=== PATIENT | female | born 1940 | race Caucasian/White ===

== ENCOUNTER 2020-08-01 13:15 | Outpatient (REF) | payer MEDICARE, SELFPAY ==
--- NOTE | ~2020-08-01 | US_ITS ---
EXAMINATION: US VENOUS ULTRASOUND WITH DOPPLER LOWER EXTREMITY, LEFT CLINICAL INFORMATION: Left calf edema COMPARISON: None TECHNIQUE: Ultrasound of the deep veins is performed from the hip to the calf with compression sonography and color and pulse Doppler assessment. Spectral analysis with color-flow imaging is performed. FINDINGS: There is normal venous compression and respiratory variation and augmented flow. The visualized common femoral vein, superficial femoral vein, profunda femoral vein, popliteal vein, and the trifurcation region shows no evidence of deep venous thrombosis. There is no significant popliteal fossa cyst. No popliteal artery aneurysm If the patient's symptoms persist, followup ultrasound in 5 days 7 days might be of value to exclude proximal propagation from a non-visualized calf vein. US/US venous duplex LE LT IMPRESSION: No acute DVT demonstrated in the left lower extremity.
== END 2020-08-01 13:16 | disposition home or self-care (01) ==
LOC: HO.HMGCX 13:15
PROVIDERS: Visit Provider Nurse Practitioner Family
DX: R60.0 Localized edema (principal)
CPT/HCPCS: 93971

== ENCOUNTER 2021-04-23 20:24 | Emergency (ER) | payer MEDICARE, SELFPAY ==
[2021-04-23 20:54] VITALS: BP 141/55; PULSE 77; RESP 18; TEMP 36.8; O2SAT 95; BMI 41.9
[2021-04-23 21:04] LABS: Appearance Urine CLEAR; Color Urine YELLOW; Glucose Urine UA NEG (NEG); Leukocyte Esterase Urine 1+ (NEG); Nitrite Urine NEG (NEG); UACC Culture Trigger YES; Urine Blood 2+ (NEG); Urine Ketones NEG (NEG); Urine Protein NEG (NEG-TRACE)
[2021-04-23 21:12] LABS: Bacteria Urine 1+ /LPF; Squamous Epithelial Cell Urine 2+ /LPF
--- NOTE | 2021-04-23 23:05 | ED_ITS ---
HPI - Female Genitourinary General Chief complaint: Urogenital-Female Stated complaint: ?UTI Time Seen by Provider: 04/23/21 22:48 Source: patient Mode of arrival: ambulatory History of Present Illness HPI Narrative: 80-year-old female who presents with worsening urinary symptoms that include frequency, small amounts when she does go, some burning, increased back pain but denies any nausea, vomiting, fevers, chills but states that overall she has not been feeling well. Related Data Home Medications Medication Instructions Recorded Confirmed alprazolam 1 mg tablet 1 mg PO TID PRN 08/01/20 cholecalciferol (vitamin D3) 50 50 mcg PO DAILY 08/01/20 mcg (2,000 unit) capsule cyclosporine 0.05 % eye drops in a 1 drp OPHTHALMIC (EYE) Q12H 08/01/20 dropperette (Restasis) diclofenac sodium 1 % topical gel TOPICAL 08/01/20 diltiazem HCl 240 mg 240 mg PO DAILY 08/01/20 capsule,extended release 24 hr furosemide 40 mg tablet mg PO PRN 08/01/20 lidocaine 5 % topical patch 0 patch TOPICAL DIRECTED 08/01/20 losartan 50 mg tablet 50 mg PO BID 08/01/20 metoprolol tartrate 25 mg tablet 50 mg PO BID 08/01/20 omeprazole 20 mg capsule,delayed 20 mg PO BID 08/01/20 release oxycodone 10 mg tablet 10 mg PO Q6H PRN 08/01/20 potassium chloride 20 mEq 20 meq PO BID 08/01/20 tablet,extended release rivaroxaban 20 mg tablet 20 mg PO BEDTIME 08/01/20 rivaroxaban 20 mg tablet (Xarelto) 20 mg PO DAILY 08/01/20 torsemide 20 mg tablet mg PO 08/01/20 Previous Rx's Medication Instructions Recorded cefixime 400 mg capsule 400 mg PO DAILY 7 Days #7 cap 04/23/21 Allergies Allergy/AdvReac Type Severity Reaction Status Date / Time No Known Allergies Allergy Verified 04/23/21 20:54 Review of Systems Review of Systems: Pertinent positives and negatives as stated in HPI 10 point review of systems is otherwise negative. PMFSH Past Medical History Source: nursing notes reviewed Medical History Atrial fibrillation UTI (urinary tract infection) Physical Exam Vital Signs: Vital Signs: Last Vital Signs Temp 98.3 F 04/23/21 20:54 Pulse 77 04/23/21 20:54 Resp 18 04/23/21 20:54 BP 141/55 H 04/23/21 20:54 Pulse Ox 95 04/23/21 20:54 BMI result Body Mass Index 41.9 VITAL SIGNS: Reviewed. GENERAL: Well developed, well nourished, in no acute distress. HEAD: Normocephalic/atraumatic EYES: PERRLA, EOMI OROPHARYNX: no oral lesions noted, posterior pharynx clear LUNGS: Normal breath sounds. No adventitious sounds or accessory muscle use. SpO2<95> CARDIOVASCULAR: Regular rate and rhythm without noted murmurs, no JVD or lower extremity edema. ABDOMEN: Soft, non-tender, non-distended with bowel sounds, no CVA tenderness NEUROLOGIC: Alert and oriented x 4. Strength and sensation to light touch were grossly intact x 4. Course Course Course Narrative: 80-year-old female with history and clinical presentation consistent with UTI and on review of all investigations concerns for possible ascending infection, patient received initial cephalexin here in the emergency room and then was discharged with pyelonephritis coverage. [facility] - Female Genitourinary Lab Data Labs: Lab Results 04/23/21 Range/Units 20:59 Urine Color YELLOW Urine Appearance CLEAR Urine pH 6.0 (5.0-8.0) Ur Specific [place] 1.010 (1.005-1.025) Urine Protein NEG (NEG-TRACE) MG/DL Urine Glucose (UA) NEG (NEG) MG/DL Urine Ketones NEG (NEG) MG/DL Urine Blood 2+ H (NEG) Urine Nitrite NEG (NEG) Ur Leukocyte Esterase 1+ H (NEG) Urine RBC 5-9 H (0) /HPF Urine WBC 15-29 H (0-4) /HPF Ur Squamous Epith Cells 2+ /LPF Urine Bacteria 1+ /LPF Discharge Plan Discharge Clinical Impression: Pyelonephritis Patient Disposition: Home, Self-Care Instructions: Kidney Infection (ED) Additional Instructions: Complete the entire course of antibiotics as prescribed. Recommend [id number] Tylenol/ibuprofen as needed for pain control. Increase fluid hydration with water. Return to the ER for worsening symptoms. Prescriptions: New cefixime 400 mg capsule 400 mg PO DAILY 7 Days Qty: 7 0RF No Action omeprazole 20 mg capsule,delayed release(DR/EC) 20 mg PO BID 0RF diclofenac sodium 1 % gel topical 0RF losartan 50 mg tablet 50 mg PO BID 0RF torsemide 20 mg tablet PO 0RF alprazolam 1 mg tablet 1 mg PO TID PRN0RF oxycodone 10 mg tablet 10 mg PO Q6H PRN (Reason: pain) 0RF potassium chloride 20 mEq tablet extended release 20 meq PO BID 0RF Xarelto 20 mg tablet 20 mg PO BEDTIME 0RF metoprolol tartrate 25 mg tablet 50 mg PO BID 0RF furosemide 40 mg tablet PO PRN0RF diltiazem HCl 240 mg capsule,extended release 24hr 240 mg PO DAILY 0RF lidocaine 5 % adhesive patch,medicated 0 patch topical DIRECTED 0RF Restasis 0.05 % dropperette 1 drp ophthalmic (eye) Q12H 0RF cholecalciferol (vitamin D3) 50 mcg (2,000 unit) capsule 50 mcg PO DAILY 0RF Xarelto 20 mg tablet 20 mg PO DAILY 0RF Rx Instructions: must administer with evening meal Referrals: Rafa Polanco PA [Primary Care Provider] - 2 days
[2021-04-23] MEDS: cephALEXin 500 MG CAPSULE PO (23:12)
== END 2021-04-23 23:23 | disposition home or self-care (01) ==
LOC: HO.ED 23:12
PROVIDERS: Emergency Provider Student in an Organized Health Care Education/Training Program; PCP Physician Assistant Medical
DX: N12 Tubulo-interstitial nephritis, not specified as acute or chronic (principal); R35.0 Frequency of micturition; Z79.899 Other long term (current) drug therapy
CPT/HCPCS: 81001; 87086; 99282

== ENCOUNTER 2023-01-15 10:09 | Outpatient (AMB) | payer MEDICARE, SELFPAY ==
--- NOTE | 2023-01-15 10:14 | AM.OFFWIN_ITS ---
Intake Vital Signs 01/15/23 10:15 Height 5 ft 5 in BP 162/84 H Blood Pressure Location Rt brachial Position Sitting Pulse 102 H Pulse Source Pulse Oximeter Temp 97.5 F Temp Source Temporal Artery Scan Pulse Oximetry (%) 92 Oxygen Delivery Method Room Air Intake Visit Reasons: EST/short of breath/wheezing(lobby) Intake Note: pt is here for c.o sob, wheezing Patient Tobacco Use Status: Never used Tobacco Allergies zolpidem [From Ambien] Adverse Reaction (Verified 01/16/23 06:24) Hallucinations Medication List - Last Reconciled 01/16/23 by Andrae Rocha MD albuterol sulfate 90 mcg/actuation (Ventolin HFA) 1 inh inhalation QID PRN alprazolam 1 mg PO TID PRN cephalexin 500 mg PO BID cholecalciferol (vitamin D3) 50 mcg PO DAILY codeine-guaifenesin 10-100 mg/5 mL 5 mL PO Q6H PRN cyclosporine 0.05% (Restasis) 1 drp ophthalmic (eye) Q12H diclofenac sodium 1% topical diltiazem HCl 240 mg PO DAILY furosemide mg PO PRN lidocaine 5% 0 patches topical DIRECTED losartan 50 mg PO BID metoprolol tartrate 50 mg PO BID omeprazole 20 mg PO BID oxycodone 10 mg PO Q6H PRN potassium chloride ER 20 mEq PO BID prednisone 60 mg (3 x 20 mg) PO DAILY rivaroxaban (Xarelto) 20 mg PO DAILY rivaroxaban 20 mg PO BEDTIME torsemide mg PO HPI EST/short of breath/wheezing(lobby) HPI Details 82-year-old female presents to the [facility] for a sick visit. She is accompanied by her . Patient is reporting marked shortness of breath and nonproductive cough for the past 4 days. She is unable to lie down flat. She is wheezing and has a raspy cough. Low-grade fever. She is tested negative for COVID at home. [facility] Medical History Atrial fibrillation UTI (urinary tract infection) Social History Patient Tobacco Use Status: Never used Tobacco Physical Exam Vital Signs: Last Vital Signs Temp 97.5 F 01/15/23 10:15 Pulse 102 H 11/28/23 10:15 BP 162/84 H 01/15/23 10:15 Pulse Ox 92 01/15/23 10:15 Oxygen Delivery Method Room Air 01/15/23 10:15 Const Other: Patient appears tired and is able to speak full sentences. Baseline pulse ox at room air was 85%. 2 liters/minute oxygen started. General: cooperative and alert Orientation/consciousness: patient oriented x3 Limitations: no limitations HEENT Head: Yes normal to inspection Eyes General: appearance normal, both eyes and all related structures Neck Neck: Yes normal visual inspection Chest Chest palpation & inspection: normal palpation of entire chest wall Resp Other: Scattered wheeze bilaterally. Cardio Jugular venous distension: no JVD Rate: tachycardic Heart sounds: S1 normal heart sound present and S2 normal heart sound present Neuro General: patient oriented x3 Office Procedures Nebulizer Treatment Nebulizer Treatment 94498-[id number]/MDI RX initial, or Nebulizer Subsequent Treatment Nebulizer Treatment Nebulizer Treatment 23043-Sowvgtbvk/MDI RX initial, or Nebulizer Subsequent Treatment Office Meds albuterol sulfate 2.5 mg/3 mL (0.083 %) solution for nebulization Performing Provider: Andrae Rocha MD [place] [facility] Administered by: Ericka Johnson RN on 01/15/23 10:25 Dose Route Admin Location Dispensed Lot Number Expiration Date NDC [employer] 2.5 mg inhalation 3 mL 4 04/18/24 55419-362-19 [employer] albuterol sulfate 2.5 mg/3 mL (0.083 %) solution for nebulization Performing Provider: Andrae Rocha MD Performing Location: [facility] Administered by: Ericka Johnson RN on 01/15/23 10:41 Dose Route Admin Location Dispensed Lot Number Expiration Date [employer]DC [employer] 2.5 mg inhalation 3 mL 4 04/18/24 67930-385-14 [employer] Comments: Second treatment Assessment & Plan Assessment & Plan (1) COPD exacerbation: Code(s): J44.1 - Chronic obstructive pulmonary disease with (acute) exacerbation Plan x ray images personally revd by me. No infiltrate seen. Abx, prednisone and cough medication called in. Patient was feeling better. Explained that this could get worse and needs an evaluation in the ER. Pt reluctant to proceed to the ER. Advised her to follow up here if needed. Orders: Orders AMB Nebulizer Treatment 01/15/23 R06.00 - Dyspnea, unspecified SARS-CoV2/FLU/RSV 01/15/23 R09.89 - Other specified symptoms and signs involving the circulatory and respiratory systems XR chest 2V 01/15/23 R05.9 - Cough, unspecified AMB Nebulizer Treatment 01/15/23 R06.00 - Dyspnea, unspecified Medications: New cephalexin 500 mg PO BID 14 caps 0RF albuterol sulfate 90 mcg/actuation (Ventolin HFA) 1 inh inhalation QID PRN 8.5 grams 1RF shortness of breath or wheezing prednisone 60 mg (3 x 20 mg) PO DAILY 9 tabs 0RF codeine-guaifenesin 10-100 mg/5 mL 5 mL PO Q6H PRN 120 mL 0RF allergy symptoms Discontinued cefixime Discontinued Reason: Doctor's Order 400 mg PO DAILY 7 caps 0RF 7 days Coding Level of Care Code Est Pt Level 4 (76100) Diagnoses COPD exacerbation J44.1 CPT Codes Nebulizer Treatment - Nebulizer Treatment, initial or subsequent: 91008- Nebulizer/MDI RX initial, or Nebulizer Subsequent Treatment ([id number]) Nebulizer Treatment - Nebulizer Treatment, initial or subsequent: 53853- Nebulizer/MDI RX initial, or Nebulizer Subsequent Treatment ([id number])
[2023-01-15 10:15] VITALS: BP 162/84; PULSE 102; TEMP 36.4; O2SAT 92
== END 2023-01-15 12:47 | disposition home or self-care (01) ==
PROVIDERS: PCP Physician Assistant Medical; Visit Provider Internal Medicine
DX: J44.1 Chronic obstructive pulmonary disease with (acute) exacerbation (principal)
CPT/HCPCS: 94640; 99214; J7613

== ENCOUNTER 2023-01-15 10:56 | Outpatient (REF) | payer MEDICARE, SELFPAY ==
--- NOTE | ~2023-01-15 | XR_ITS ---
EXAMINATION: XR CHEST CLINICAL INFORMATION: Cough. COMPARISON: None available. TECHNIQUE: 2 views of the chest were obtained. FINDINGS: Minimal patchy opacities along the inferior/posterior aspect of the right hilum which could represent atelectasis versus very early infiltrates. No pleural effusion or pneumothorax. Unremarkable cardiomediastinal silhouette. XR/XR chest 2V IMPRESSION: Minimal patchy opacities along the inferior/posterior aspect of the right hilum which could represent atelectasis versus very early infiltrates.
[2023-01-15 15:28] LABS: Influenza A PCR NEGATIVE (Negative); Influenza B PCR NEGATIVE (Negative); Resp Syncy Virus RNA Qual PCR POSITIVE (Negative); SARS COV2 PCR INHOUSE NEGATIVE (Negative)
== END 2023-01-15 10:57 | disposition home or self-care (01) ==
LOC: HO.HMGCX 10:56
PROVIDERS: PCP Physician Assistant Medical; Visit Provider Internal Medicine
DX: Z13.89 Encounter for screening for other disorder (principal)
CPT/HCPCS: 0241U; 71046

== ENCOUNTER 2023-01-15 11:41 | Outpatient (REF) | payer MEDICARE, SELFPAY | END 2023-01-15 11:42 | disposition home or self-care (01) | LOC: HO.LNP 11:41 | PROVIDERS: Visit Provider Internal Medicine | DX: Z13.89 Encounter for screening for other disorder (principal) ==

== ENCOUNTER 2023-01-17 11:58 | Inpatient (IN) | payer MEDICARE, SELFPAY ==
[2023-01-17] VITALS (11 sets, daily range): BP systolic 140–175; BP diastolic 67–115; PULSE 71–116; RESP 16–20; TEMP 36.1–36.9; O2SAT 93–98; BMI 41.3; BMI 43.1
--- NOTE | ~2023-01-17 | XR_ITS ---
EXAMINATION: XR CHEST 2:12 PM CLINICAL INFORMATION: Dyspnea COMPARISON: 01/15/2023 TECHNIQUE: Frontal view of the chest was obtained. FINDINGS: No significant abnormality is noted involving the heart, lungs, mediastinum, bony thorax or soft tissues. XR/XR chest 1V IMPRESSION: Grossly clear AP portable chest x-ray.
--- NOTE | 2023-01-17 12:18 | ECG_ITS ---
Test Reason : SOB Blood Pressure : / mmHG Vent. Rate : 075 BPM Atrial Rate : 000 BPM P-R Int : 000 ms QRS Dur : 074 ms QT Int : 380 ms P-R-T Axes : 000 007 002 degrees QTc Int : 424 ms Poor data quality Possible Atrial fibrillation Nonspecific ST and T wave abnormality Abnormal ECG No previous ECGs available Repeat EKG Referred By: Generic ED Physician Electronically Signed By:MARIANNA PEPPER MD
[2023-01-17 12:39] LABS: MANUAL DIFF FLAG NO
--- NOTE | 2023-01-17 12:56 | ED.SOB ---
HPI - SOB/Dyspnea General Chief Complaint: Upper Respiratory Symptoms Stated Complaint: SOB,COUGH,RECENT URI,MEDS NOT WORKING PER EMS Time Seen by Provider: 01/17/23 12:53 Source: patient and old records reviewed Mode of arrival: EMS Limitations: no limitations History of Present Illness HPI Narrative: 82 yo female with hx of COPD, afib on xarelto, UTI, leg edema who has not been well since last Saturday. She has had URI symptoms that have progressed. She denies travel or sick contacts. She went to walk in clinic on 01/16 and was started on prednisone and cephalexin as well as cough medications that are not helping. When at walk in clinic she was urged to go to the ER but she refused. She notes she is having a hard time breathing, laying flat and she is labored. EMS gave duoneb ECONOMICS ANALYST of note RSV positive on 01/15 MD elicited complaint: shortness of breath and cough Pertinent past history: COPD Onset (ago): week(s) (1) Context: recent illness Timing: progressively worsening Severity: moderate Exacerbating factors: lying flat, exertion and coughing Relieving factors: oxygen, rest and bronchodilators Associated symptoms: cough, wheezing and chest congestion Treatment prior to arrival: oxygen and bronchodilator Related Data Home Medications Medication Instructions Recorded Confirmed alprazolam 1 mg tablet 2 mg PO BEDTIME 08/01/20 01/17/23 cholecalciferol (vitamin D3) 50 50 mcg PO DAILY 08/01/20 01/17/23 mcg (2,000 unit) capsule cyclosporine 0.05 % eye drops in a 1 drp ophthalmic (eye) Q12H 08/01/20 01/17/23 dropperette (Restasis) diclofenac sodium 1 % topical gel 1 ea topical DAILY 08/01/20 01/17/23 diltiazem HCl 240 mg 240 mg PO DAILY 08/01/20 01/17/23 capsule,extended release 24 hr lidocaine 5 % topical patch 0 patch topical DIRECTED 08/01/20 01/17/23 losartan 50 mg tablet 100 mg PO DAILY 08/01/20 01/17/23 metoprolol tartrate 25 mg tablet 50 mg PO BID 08/01/20 01/17/23 omeprazole 20 mg capsule,delayed 20 mg PO BID 08/01/20 01/17/23 release oxycodone 10 mg tablet 10 mg PO Q6H PRN pain 08/01/20 01/17/23 potassium chloride 20 mEq 20 meq PO BID 08/01/20 01/17/23 tablet,extended release rivaroxaban 20 mg tablet (Xarelto) 20 mg PO DAILY@1700 08/01/20 01/17/23 torsemide 20 mg tablet 1 mg PO DAILY 08/01/20 01/17/23 clobetasol 0.05 % topical cream 1 appl topical BID 01/17/23 01/17/23 estradiol 0.01% (0.1 mg/gram) 1 appl vaginal MOTH 01/17/23 01/17/23 vaginal cream nystatin 100,000 unit/gram topical 1 appl topical BID 01/17/23 01/17/23 powder Previous Rx's Medication Instructions Recorded albuterol sulfate 90 mcg/actuation 1 inh inhalation QID PRN shortness 01/15/23 aerosol inhaler (Ventolin HFA) of breath or wheezing #8.5 grams Allergies Allergy/AdvReac Type Severity Reaction Status Date / Time zolpidem [From Ambien] AdvReac Hallucinati Verified 01/16/23 06:24 ons Review of Systems Review of Systems: Constitutional : No Fever, No Chills ENT/Mouth : No Hoarseness, No sore throat, No Rhinorrhea Eyes: No Redness, No Discharge, No Vision Changes Cardiovascular : No Chest Pain, positive SOB, positive Dyspnea on Exertion, No Edema Respiratory : positive Cough, No Sputum, positive Wheezing, Gastrointestinal : No Nausea, No Vomiting, No Diarrhea, No abdominal Pain Genitourinary : No Dysuria, No Hematuria Musculoskeletal : No joint pain, No Myalgias Skin : No rash Neuro : No Weakness, No Numbness, No Headache Psych : No anxiety, depression Heme/Lymph: No Bruising, No Bleeding Endocrine : No Polyuria, No Polydipsia All other systems reviewed and are negative [facility] Past Medical History Attestation statement: The following information was validated with the patient. Medical History Atrial fibrillation UTI (urinary tract infection) Social History Social History Household Members: Spouse Household Members Other:: Spouse Lucio Housing: House Do you presently have visiting nurse or other home services: No Patient Tobacco Use Status: Never used Tobacco Smoked in Last 30 Days: No Second Hand Smoke Exposure: No Use of substances other than those prescribed or required for medical reasons: No Currently Displaying Signs/Symptoms of Drug Intoxication Withdrawal: No Any prior treatment program specific to substance use: No Have you been hit, kicked, punched, or otherwise hurt by someone within the past year? If so, by whom?: No Do you feel safe in your current relationship?: Yes Is there a partner from a previous relationship who is making you feel unsafe now?: No Are you made to feel afraid or neglected: No Advance Directives: No Advance Directives Information Provided: No Do you have thoughts of harming others: None Do you have a plan to hurt others: No Plan Recently lost weight without trying: No Eating poorly because of decreased appetite: No Nutrition Risks: No Nutritional Risk Patient : No : No Poor oral hygiene: No Physical Exam Vital Signs: Vital Signs: Last Vital Signs Temp 96.9 F 01/17/23 20:00 Pulse 106 H 01/17/23 20:11 Resp 16 01/17/23 20:11 BP 167/77 H 01/17/23 20:00 Pulse Ox 96 01/17/23 20:00 O2 Del Method Nasal Cannula 01/17/23 20:00 O2 Flow Rate 2 01/17/23 20:00 BMI result Body Mass Index 41.3 Appearance: Alert. Oriented X3. No acute distress. Eyes: Pupils equal, round and reactive to light. ENT: Pharynx normal. Neck: Normal inspection. Neck supple. CVS: Normal heart rate and rhythm. Pulses normal. Respiratory: Mild respiratory distress - tachypnea and retractions. Breath sounds very coarse and wheezy with tachypnea Abdomen: Soft and nontender. Skin: Skin warm and dry. Normal skin color. Normal skin turgor. Extremities: No lower extremity edema. No calf ttp Neuro: Oriented X 3. No motor deficit. No sensory deficit. Course Course Course Narrative: lactic acidosis trend due to neb treatments and not worsening sepsis she does not need 30cc/kg bolus - elevated lactic acidosis is due to albuterol and not infection or severe sepsis Medications Administered Generic Name Dose Route Start Last Admin Trade Name Freq PRN Reason Stop Dose Admin Albuterol/Ipratropium 3 ml 01/17/23 20:00 01/17/23 20:09 Albuterol/Iprat 2.5/0.5mg 3 Ml Ampul.Neb INHALE 3 ml RQ4H MICHAEL Administration Rivaroxaban 20 mg 01/17/23 17:00 01/17/23 18:09 Rivaroxaban 20 Mg Tablet PO 20 mg DAILY@1700 MICHAEL Administration Discontinued Medications Generic Name Dose Route Start Last Admin Trade Name Helio PRN Reason Stop Dose Admin Albuterol/Ipratropium 3 ml 01/17/23 13:28 01/17/23 13:32 Albuterol/Iprat 2.5/0.5mg 3 Ml Ampul.Neb INHALE 01/17/23 13:29 3 ml ONCE ONE Administration Albuterol/Ipratropium 3 ml 01/17/23 17:00 01/17/23 17:08 Albuterol/Iprat 2.5/0.5mg 3 Ml Ampul.Neb INHALE Not Given Q4H [facility] Furosemide 20 mg 01/17/23 14:20 01/17/23 15:45 Furosemide 20 Mg/2 Ml Vial IVPUSH 01/17/23 14:21 20 mg ONCE ONE Administration Protocol Ceftriaxone Sodium 1 gm/ 50 mls @ 100 mls/hr 01/17/23 13:06 01/17/23 17:30 Sodium Chloride IV 01/17/23 13:35 Infused ONCE ONE Infusion Azithromycin 500 mg/ Sodium 250 mls @ 125 mls/hr 01/17/23 13:06 01/17/23 17:50 Chloride IV 01/17/23 15:05 Infused ONCE ONE Infusion Sodium Chloride 500 mls @ 500 mls/hr 01/17/23 14:30 01/17/23 18:29 Ns IV 01/17/23 15:29 Infused .Q1H MICHAEL Infusion Methylprednisolone Sodium Succinate 60 mg 01/17/23 13:06 01/17/23 14:20 Methylprednisolone Sod Succ 125 Mg/2 Ml Vial IVPUSH 01/17/23 13:07 60 mg ONCE ONE Administration Non-Formulary Medication 1 drop 01/17/23 17:00 01/17/23 18:10 Cyclosporine [Restasis] EYE-BOTH Not Given Q12H [facility] Non-Formulary Medication 1 appl 01/17/23 17:00 01/17/23 18:11 Estradiol VAGINAL Not Given MOTH [facility] Oxycodone HCl 10 mg 01/17/23 14:17 01/17/23 15:01 Oxycodone Hcl Immed Release 5 Mg Tablet PO 01/17/23 14:18 10 mg ONCE ONE Administration Medical Decision Making Medical Decision Making [facility] Narrative: 82 yo female with hx of COPD, afib on xarelto, UTI, leg edema here with c/o worsening URI symptoms now congested cough and wheezing has been on INH, prednisone and cephalexin since 01/15 without relief. At this time labs, neb, IV steroids, CXR for pneumonia, empiric coverage for possible bronchitis vs pneumonia. Likely admit vs failed outpatient therapy Differential Diagnosis Differential Diagnoses: The differential diagnosis associated with the presentation includes viral syndrome, COPD, pneumonia Admission/Observation Consideration of admission/observation: Escalation of care including admission/observation considered admit for work of breathing low O2 sats Consult Healthcare Provider Management of the patient was discussed with: Hospitalist (agrees to admit) Lab Data [facility] Lab Attestation statement: I reviewed the patient's lab results. 01/17/23 12:23 01/17/23 12:23 Labs: Lab Results 01/17/23 01/17/23 01/17/23 Range/Units 12:23 13:19 13:54 WBC 9.8 (4.8-10.8) X10*3/uL RBC 4.62 (4.20-5.50) X10*6/uL Hgb 13.3 (12.0-16.0) g/dl Hct 40.4 (37.0-47.0) % MCV 87.4 (80.0-98.0) fL MCH 28.8 (27.0-33.0) pg MCHC 32.9 (31.0-35.0) g/dl RDW 14.6 (11.0-16.0) % Plt Count 258 (160-400) X10*3/uL MPV 10.6 (9.4-12.3) fL Immature Gran % (Auto) 0.5 H (0.0-0.4) % Neut % (Auto) 80.4 H (45-73) % Lymph % (Auto) 15.8 L (20-40) % [place] % (Auto) 3.2 (2-11) % Eos % (Auto) 0.0 (0-4) % Baso % (Auto) 0.1 (0-2) % Lymph # (Auto) 1.5 (1.2-4.9) X10*3/uL [place] # (Auto) 0.3 (0.1-1.2) X10*3/uL Eos # (Auto) 0.0 (0.0-0.4) X10*3/uL Baso # (Auto) 0.0 (0.0-0.2) X10*3/uL Abs Immat Gran (auto) 0.05 H (0.00-0.03) X10*3/uL Absolute Neuts (auto) 7.9 (2.0-8.3) x10*3/uL Absolute Nucleated RBC 0.000 (0.0-0.012) X10*3/uL Nucleated RBC % (auto) 0.0 (0.0-0.2) /100WBC Sodium 137 (135-145) mmol/L Potassium 4.0 (3.3-5.1) mmol/L Chloride 98 (96-108) mmol/L Carbon Dioxide 27 (22-29) mmol/L Anion Gap 16 (12-20) BUN 32 H (9-16) mg/dL Creatinine 1.07 (0.5-1.4) mg/dL Estim Creat Clear Calc 48.9 Estimated GFR 49 Random Glucose 233 H (60-115) mg/dL Lactic Acid 2.9 H* (0.5-2.0) mmol/L Calcium 9.9 (8.4-10.2) mg/dL Total Bilirubin 0.4 (0.0-1.0) mg/dL AST 27 (5-31) U/L ALT 27 (0-31) U/L Alkaline Phosphatase 70 (39-117) U/L Troponin I High Sens 9.6 (<3.5-17.0) ng/L B-Natriuretic Peptide 157 H (<100) pg/mL Total Protein 8.3 H (6.5-8.0) g/dL Albumin 4.5 (3.5-5.0) g/dL Influenza Type A (PCR) NEGATIVE (Negative) Influenza Type B (PCR) NEGATIVE (Negative) RSV RNA Qual (PCR) POSITIVE A (Negative) SARS-CoV-2 RNA (RT-PCR) NEGATIVE (Negative) Independent Interpretation I performed an independent interpretation of an: EKG and Plain X-Ray (no pneumonia) Interpretation: Rate: 75 Rhythm: afib [place]: left Normal QRS complex. ST T wave : no STEFFI, nonspecific qTC: normal prior studies: no acute ischemia The study has been interpreted contemporaneously by me. . Radiology Impression Discussion of test interpretation with radiology: I have reviewed the radiologist's reading. Independent Historian Clinical information obtained from an independent historian. History obtained from or confirmed by: EMS Critical Care Time Critical Care Time Critical Care Time: Yes Total Critical Care Time: 35 Attestation: review of records, IV lasix, repeat lactic acidosis, repeat admission, nebs I attest to this time spent taking care of the patient Discharge Plan Discharge Clinical Impression: RSV bronchitis, Acidosis, lactic Elevated WBC count Qualifiers: Leukocytosis type: unspecified Qualified Code(s): D72.829 - Elevated white blood cell count, unspecified Patient Disposition: Admitted As Inpatient Interventions: Admission Worksheet (ED) Last Done: 01/17/23 20:16 Discharge Date/Time: 01/17/23 20:33
[2023-01-17 12:57] LABS: Basophils Percent Auto 0.1 % (0-2); Hematocrit 40.4 % (37.0-47.0); Hemoglobin 13.3 g/dl (12.0-16.0); Imm Gran Abs Auto 0.05 X10*3/uL (0.00-0.03); Imm Gran Pct Auto 0.5 % (0.0-0.4); Lymphocytes Absolute Auto 1.5 X10*3/uL (1.2-4.9); Lymphocytes Percent Auto 15.8 % (20-40); Mean Corpuscular HGB Conc 32.9 g/dl (31.0-35.0); Mean Corpuscular Hemoglobin 28.8 pg (27.0-33.0); Mean Corpuscular Volume 87.4 fL (80.0-98.0); Mean Platelet Volume 10.6 fL (9.4-12.3); Monocytes Absolute Auto 0.3 X10*3/uL (0.1-1.2); Monocytes Percent Auto 3.2 % (2-11); Neutrophils Absolute Auto 7.9 x10*3/uL (2.0-8.3); Neutrophils Percent Auto 80.4 % (45-73); Platelet Count 258 X10*3/uL (160-400); Red Blood Count 4.62 X10*6/uL (4.20-5.50); Red Cell Distribution Width 14.6 % (11.0-16.0); White Blood Count 9.8 X10*3/uL (4.8-10.8)
[2023-01-17 13:10] LABS: Alanine Aminotransferase 27 U/L (0-31); Albumin Level 4.5 g/dL (3.5-5.0); Alkaline Phosphatase 70 U/L (39-117); Anion Gap 16 (12-20); Aspartate Amino Transferase 27 U/L (5-31); Bilirubin Total 0.4 mg/dL (0.0-1.0); Blood Urea Nitrogen 32 mg/dL (9-16); Calcium 9.9 mg/dL (8.4-10.2); Carbon Dioxide 27 mmol/L (22-29); Chloride 98 mmol/L (96-108); Creatinine Clr Calc Pharmacy 48.9; Estimated Glomerular Filt Rate 49; Glucose Random 233 mg/dL (60-115); Sodium 137 mmol/L (135-145); Total Protein 8.3 g/dL (6.5-8.0)
[2023-01-17] MEDS: Albuterol/Iprat 2.5/0.5MG 3 ML AMPUL.NEB INHALE ×3 (13:32→23:18)
[2023-01-17 13:44] LABS: B Type Natriuretic Peptide 157 pg/mL (<100)
[2023-01-17 13:45] LABS: Troponin-I High Sensitivity 9.6 ng/L (<3.5-17.0)
[2023-01-17 14:02] LABS: Influenza A PCR NEGATIVE (Negative); Influenza B PCR NEGATIVE (Negative); Resp Syncy Virus RNA Qual PCR POSITIVE (Negative); SARS COV2 PCR INHOUSE NEGATIVE (Negative)
[2023-01-17 14:20] LABS: Lactic Acid 2.9 mmol/L (0.5-2.0)
[2023-01-17] MEDS: methylPREDNISolone Sod Succ 125 MG/2 ML VIAL 60 MG IVPUSH (14:20)
[2023-01-17] MEDS: cefTRIAXone sodium 1 GM in 0.9 % Sodium Chloride 50 ML IV (14:58)
[2023-01-17] MEDS: oxyCODONE HCl Immed Release 5 MG TABLET 10 MG PO ×2 (15:01→21:59)
[2023-01-17] MEDS: Furosemide 20 MG/2 ML VIAL IVPUSH (15:45)
[2023-01-17] MEDS: Azithromycin 500 MG in 0.9 % Sodium Chloride 250 ML 125 MG IV (15:46)
[2023-01-17] MEDS: 0.9 % Sodium Chloride 500 ML IV (15:48)
[2023-01-17 16:00] LABS: Reflex Lactate? Lactic Acid Added
--- NOTE | 2023-01-17 16:49 | PHA.MEDREC ---
Pharmacy Consult ? Medication Reconciliation Pharmacy has completed the medication reconciliation.
--- NOTE | 2023-01-17 17:24 | P.HPHOSP_ITS ---
History of Present Illness Date of Service: 01/17/23 Attending physician on admission: Griselda Steward Chief Complaint: sob and cough 82 yo female with hx of COPD, afib on xarelto, UTI, leg edema who has not been well since last Saturday. She has had URI symptoms that have progressed. She denies travel or sick contacts. She went to walk in clinic on 01/16 and was started on prednisone and cephalexin as well as cough medications that are not helping. When at walk in clinic she was urged to go to the ER but she refused. no fevers In ED patient received antibiotics, still nebs, steroids was not improving says still having shortness of breath with minimal exertion and having cough; so admission was requested for COPD exacerbation. Denies any new complaint of chest pain or abdominal pain or fever or chills or nausea or vomiting Denies any cough Denies any weakness or numbness. Lab imaging EKG reviewed: CBC: Seems fine. BMP: Seems fine except BUN is 32 creatinine is 1.07. ekg: afib Review of Systems 2 Review of Systems: As above. [facility] Medical History Atrial fibrillation UTI (urinary tract infection) Social History Household Members: Spouse Household Members Other:: Spouse Lucio Housing: House Do you presently have visiting nurse or other home services: No Comment: pt is calm and cooperative, a&Ox4. Not impulsive Patient Tobacco Use Status: Never used Tobacco Smoked in Last 30 Days: No Second Hand Smoke Exposure: No Use of substances other than those prescribed or required for medical reasons: No Currently Displaying Signs/Symptoms of Drug Intoxication Withdrawal: No Any prior treatment program specific to substance use: No Have you been hit, kicked, punched, or otherwise hurt by someone within the past year? If so, by whom?: No Do you feel safe in your current relationship?: Yes Is there a partner from a previous relationship who is making you feel unsafe now?: No Are you made to feel afraid or neglected: No Advance Directives: No Advance Directives Information Provided: No Do you have thoughts of harming others: None Do you have a plan to hurt others: No Plan Recently lost weight without trying: No Eating poorly because of decreased appetite: No Nutrition Risks: No Nutritional Risk Patient : No : No Poor oral hygiene: No Meds Allergies Allergy/AdvReac Type Severity Reaction Status Date / Time zolpidem [From Ambien] AdvReac Hallucinati Verified 01/16/23 06:24 ons Active Medications: Current Medications Albuterol Sulfate (Albuterol Sulfate 90 Mcg 8 Gm Inhaler) 1 puff INHALE QID PRN PRN Reason: shortness of breath or wheezing Albuterol/Ipratropium (Albuterol/Iprat 2.5/0.5mg 3 Ml Ampul.Neb) 3 ml INHALE Q3H PRN PRN Reason: sob Albuterol/Ipratropium (Albuterol/Iprat 2.5/0.5mg 3 Ml Ampul.Neb) 3 ml INHALE RQ4H [facility] Alprazolam (Alprazolam 0.5 Mg Tablet) 2 mg PO BEDTIME [facility] Diltiazem HCl (Diltiazem Hcl Cd 240 Mg Cap.Er.Deg) 240 mg PO DAILY [facility]; Protocol Ceftriaxone Sodium 1 gm/ (Sodium Chloride) 50 mls @ 100 mls/hr IV DAILY [facility] Lidocaine (Lidocaine 4 % Patch Adh..Patch) 1 patch TRANSDERMA DAILY [facility] Losartan Potassium (Losartan Potassium 50 Mg Tablet) 100 mg PO DAILY [facility]; Protocol Metoprolol Tartrate (Metoprolol Tartrate 50 Mg Tablet) 50 mg PO BID MICHAEL; Protocol Non-Formulary Medication (Clobetasol) 1 appl TOPICAL BID [facility] Non-Formulary Medication (Cyclosporine [Restasis]) 1 drop EYE-BOTH Q12H [facility] Non-Formulary Medication (Diclofenac Sodium) 1 each TOPICAL DAILY [facility] Non-Formulary Medication (Estradiol) 1 appl VAGINAL MOTH [facility] Nystatin (Nystatin Powder 15 Gm Bottle) 1 appl TOPICAL BID [facility]; Protocol Omeprazole (Omeprazole 20 Mg Capsule.Dr) 20 mg PO BID@0630,1630 [facility] Potassium Chloride (Potassium Chloride Er 20 Meq Tab.Er.Prt) 20 meq PO BID [facility] Rivaroxaban (Rivaroxaban 20 Mg Tablet) 20 mg PO DAILY@1700 [facility] Torsemide (Torsemide 20 Mg Tablet) 1 mg PO DAILY [facility]; Protocol Vitamin D (Cholecalciferol (Vitamin D3) 25 Mcg Tablet) 50 mcg PO DAILY [facility] Home Medications Medication Instructions Recorded Confirmed Last Taken Type alprazolam 1 mg tablet 2 mg PO BEDTIME 08/01/20 01/17/23 Unknown History cholecalciferol (vitamin D3) 50 50 mcg PO DAILY 08/01/20 01/17/23 Unknown History mcg (2,000 unit) capsule cyclosporine 0.05 % eye drops in a 1 drp ophthalmic (eye) Q12H 08/01/20 01/17/23 Unknown History dropperette (Restasis) diclofenac sodium 1 % topical gel 1 ea topical DAILY 08/01/20 01/17/23 Unknown History diltiazem HCl 240 mg 240 mg PO DAILY 08/01/20 01/17/23 Unknown History capsule,extended release 24 hr lidocaine 5 % topical patch 0 patch topical DIRECTED 08/01/20 01/17/23 Unknown History losartan 50 mg tablet 100 mg PO DAILY 08/01/20 01/17/23 Unknown History metoprolol tartrate 25 mg tablet 50 mg PO BID 08/01/20 01/17/23 Unknown History omeprazole 20 mg capsule,delayed 20 mg PO BID 08/01/20 01/17/23 Unknown History release oxycodone 10 mg tablet 10 mg PO Q6H PRN pain 08/01/20 01/17/23 Unknown History potassium chloride 20 mEq 20 meq PO BID 08/01/20 01/17/23 Unknown History tablet,extended release rivaroxaban 20 mg tablet (Xarelto) 20 mg PO DAILY@1700 08/01/20 01/17/23 Unknown History torsemide 20 mg tablet 60 mg PO BEDTIME 08/01/20 01/18/23 Unknown History clobetasol 0.05 % topical cream 1 appl topical BID 01/17/23 01/17/23 Unknown History estradiol 0.01% (0.1 mg/gram) 1 appl vaginal MOTH 01/17/23 01/17/23 Unknown History vaginal cream nystatin 100,000 unit/gram topical 1 appl topical BID 01/17/23 01/17/23 Unknown History powder torsemide 20 mg tablet 80 mg PO DAILY 01/18/23 01/18/23 Unknown History Physical Exam 2 Vital Signs and Narrative: Vital Signs: Last Vital Signs Temp 98.4 F 01/17/23 12:11 Pulse 86 01/17/23 15:49 Resp 18 01/17/23 15:49 BP 175/76 H 01/17/23 15:49 Pulse Ox 93 01/17/23 12:11 O2 Del Method Room Air 01/17/23 15:49 BMI result Body Mass Index 41.3 Appearance: Alert.? Oriented X3.?sob. Eyes: Pupils equal, round and reactive to light.? Sclera nonicteric.? ENT: Pharynx normal.? Moist mucous membranes. cvs: rrr, [id number] , no murmur res: diminshed breath sounds ,b/l wheezin abd: no rebound or guarding ,nt, bs present. ext pulses present , no cyanosis neuro: axo3 , nonfocal. Results Labs 01/17/23 12:23 01/17/23 12:23 Labs: Laboratory Results - last 24 hr 01/17/23 01/17/23 01/17/23 12: 13:19 13:54 MCV 87.4 MCH 28.8 MCHC 32.9 RDW 14.6 Plt Count 258 MPV 10.6 Immature Gran % (Auto) 0.5 H Neut % (Auto) 80.4 H Lymph % (Auto) 15.8 L [place] % (Auto) 3.2 Eos % (Auto) 0.0 Baso % (Auto) 0.1 Lymph # (Auto) 1.5 [place] # (Auto) 0.3 Eos # (Auto) 0.0 Baso # (Auto) 0.0 Abs Immat Gran (auto) 0.05 H Absolute Neuts (auto) 7.9 Absolute Nucleated RBC 0.000 Nucleated RBC % (auto) 0.0 Anion Gap 16 Estim Creat Clear Calc 48.9 Estimated GFR 49 Random Glucose 233 H Lactic Acid 2.9 H* Calcium 9.9 Total Bilirubin 0.4 AST 27 ALT 27 Alkaline Phosphatase 70 B-Natriuretic Peptide 157 H Total Protein 8.3 H Albumin 4.5 Influenza Type A (PCR) NEGATIVE Influenza Type B (PCR) NEGATIVE RSV RNA Qual (PCR) POSITIVE A SARS-CoV-2 RNA (RT-PCR) NEGATIVE Imaging Radiologist's Impressions: Impressions Chest X-Ray 01/17/23 14:25 IMPRESSION: Grossly clear AP portable chest x-ray. Assessment and Plan (1) RSV bronchitis: Status: Acute Plan 82 yo female with hx of COPD, afib on xarelto, UTI, leg edema who has not been well since last Saturday. She has had URI symptoms that have progressed. She denies travel or sick contacts. She went to walk in clinic on 01/16 and was started on prednisone and cephalexin as well as cough medications that are not helping. When at walk in clinic she was urged to go to the ER but she refused. no fevers In ED patient received antibiotics, still nebs, steroids was not improving says still having shortness of breath with minimal exertion and having cough; so admission was requested for COPD exacerbation. COPD exacerbation with RSV URI: Chest x-ray negative, blood cultures sent, will add are yes panel. Patient still having productive cough, shortness of breath with minimal exertion Nebs, steroids tried failed out patiently Elevated lactic acid due to nebs Will continue nebs, steroids, antibiotics If patient condition worsen will get ABG, consider pulmonary evaluation. afib on xarelto ekg afib Rate controlled continue diltiazem htn: Continue medications-metoprolol, diltiazem, losartan Patient will benefit 48 hour hospital treatment for underlying COPD exacerbation because did not respond to outpatient treatment also patient is still symptomatic after trial of ED treatment with nebs, steroids: We will continue IV antibiotics, steroids, nebs and continue to monitor. Above management discussed with patient in length and she understand and in agreement with the plan, time spent 70 minute. Quality Stroke Does the patient have a stroke diagnosis?: No VTE Prior VTE?: No VTE Risk Level:: Medical - moderate - high VTE Device Contraindication: N/A - Device Ordered VTE Drug Contraindication: N/A - Med Ordered
[2023-01-17] MEDS: Rivaroxaban 20 MG TABLET PO (18:09)
[2023-01-17 18:34] LABS: Glucose, Whole Blood 220 mg/dL (60-115)
[2023-01-17 18:35] LABS: Cancel Lactic Acid Canceled
--- NOTE | 2023-01-17 19:46 | MHC.EDTECH ---
Patient given dinner tray
[2023-01-17] MEDS: Potassium Chloride ER 20 MEQ TAB.ER.PRT PO (22:00)
[2023-01-17] MEDS: ALPRAZolam 0.5 MG TABLET 2 MG PO (22:00)
[2023-01-17] MEDS: Metoprolol Tartrate 50 MG TABLET PO (22:00)
[2023-01-17] MEDS: 0.9 % Sodium Chloride Flush 3 ML SYRINGE IVFLUSH (23:08)
[2023-01-17] MEDS: Nystatin Powder 15 GM BOTTLE 1 APPL TOPICAL (23:08)
[2023-01-18] VITALS (11 sets, daily range): BP systolic 114–149; BP diastolic 55–85; PULSE 77–98; RESP 18–20; TEMP 36.2–37.1; O2SAT 91–97
--- NOTE | 2023-01-18 00:41 | PC.NURSE ---
Pt admitted to [facility] from ED 20:00 hour. Seen this admission for COPD exacerbation and +RSV. Pt on contact and droplet precautions for this. Pt is A&Ox4. Arrived on 2L nc. Pt denies o2 use at home for her copd. +Intermittent dry cough, pt states she leaks when she coughs which is per her baseline; peripads provided per her request after she refused offered purewick. Attempted to wean pt to RA per MD early this morning. Pt's spo2 was measuring 92-95% on RA while at rest, however pt desatted to a sustained 85-88% on RA during ambulating to bathroom with +mild sob and wheezing. Condition improved with return to bed and duoneb, spo2 94% with even and unlabored respirations. Despite this the pt stated she feels she has a harder time breathing without the o2 . 1L nc replaced and Dr. Mcgarry notified of assessment findings. O2 titration and continuous spo2 monitor orders placed. Pt currently 94% on 1L nc while resting in bed. Breathing is even and unlabored without distress on reassess. Extended respiratory pathogen panel sent as ordered. Patient denies acute complaints. 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 Pt reports +pain management. Will continue to monitor.
[2023-01-18] MEDS: oxyCODONE HCl Immed Release 5 MG TABLET 10 MG PO ×3 (05:40→20:31)
[2023-01-18] MEDS: Omeprazole 20 MG CAPSULE.DR PO ×2 (05:40→16:30)
[2023-01-18] MEDS: Albuterol/Iprat 2.5/0.5MG 3 ML AMPUL.NEB INHALE ×4 (08:08→20:29)
[2023-01-18] MEDS: predniSONE 10 MG TABLET 50 MG PO (08:31)
[2023-01-18] MEDS: guaiFEN/Codeine SF 200/20/10ML 10 ML LIQUID PO ×3 (08:31→21:52)
[2023-01-18] MEDS: Potassium Chloride ER 20 MEQ TAB.ER.PRT PO ×2 (08:32→21:50)
[2023-01-18] MEDS: Metoprolol Tartrate 50 MG TABLET PO ×2 (08:32→21:49)
[2023-01-18] MEDS: dilTIAZem HCL CD 240 MG CAP.ER.DEG PO (08:32)
[2023-01-18] MEDS: Losartan Potassium 50 MG TABLET 100 MG PO (08:33)
[2023-01-18] MEDS: Cholecalciferol (Vitamin D3) 25 MCG TABLET 50 MCG PO (08:33)
[2023-01-18] MEDS: Lidocaine 4 % Patch ADH..PATCH 1 PATCH TRANSDERMA ×2 (08:42→09:37)
[2023-01-18] MEDS: 0.9 % Sodium Chloride Flush 3 ML SYRINGE IVFLUSH ×2 (09:35→21:55)
[2023-01-18] MEDS: cefTRIAXone sodium 1 GM in 0.9 % Sodium Chloride 50 ML IV (09:35)
[2023-01-18] MEDS: Torsemide 20 MG TABLET 80 MG PO (09:36)
[2023-01-18 11:33] LABS: Adenovirus PCR Not Detected (Not Detect.); Bordetella parapertussis PCR Not Detected (Not Detect.); Bordetella pertussis PCR Not Detected (Not Detect.); Chlamydia pneumoniae PCR Not Detected (Not Detect.); Coronavirus 229E PCR Not Detected (Not Detect.); Coronavirus HKU1 PCR Not Detected (Not Detect.); Coronavirus NL63 PCR Not Detected (Not Detect.); Coronavirus OC43 PCR Not Detected (Not Detect.); Human metapneumovirus PCR Not Detected (Not Detect.); Influenza A PCR Not Detected (Not Detect.); Influenza B PCR Not Detected (Not Detect.); Mycoplasma pneumoniae PCR Not Detected (Not Detect.); Parainfluenza 1 PCR Not Detected (Not Detect.); Parainfluenza 2 PCR Not Detected (Not Detect.); Parainfluenza 3 PCR Not Detected (Not Detect.); Parainfluenza 4 PCR Not Detected (Not Detect.); RSV PCR Detected (Not Detect.); Rhino/Enterovirus PCR Not Detected (Not Detect.)
[2023-01-18 12:06] LABS: SARS-CoV-2 PCR Not Detected (Not Detect.)
[2023-01-18] MEDS: Benzonatate 100 MG CAPSULE PO ×2 (14:20→21:50)
--- NOTE | 2023-01-18 15:58 | HO.PM.IMPN ---
Subjective Subjective Date of Service: 01/18/23 Interval History: COPD exacerbation, RSV URI Review of Systems Patient still getting dressed shortness of breath, also has aggressive cough Feels short of breath with minimal exertion Generalized weak. Physical Exam Vital Signs: Vital Signs: Last Vital Signs Temp 97.2 F 01/18/23 11:14 Pulse 98 01/18/23 15:49 Resp 20 01/18/23 15:49 BP 135/85 01/18/23 11:14 Pulse Ox 94 01/18/23 11:14 O2 Del Method Room Air 01/18/23 11:14 O2 Flow Rate 1 01/18/23 07:35 BMI result Body Mass Index 43.1 Appearance: Alert.? Oriented X3.?sob.. cvs: rrr, [id number] , no murmur res: diminshed breath sounds ,b/l wheezin abd: no rebound or guarding ,nt, bs present. ext pulses present , no cyanosis neuro: axo3 , nonfocal. Objective Data Active Medications Albuterol/Ipratropium (Albuterol/Iprat 2.5/0.5mg 3 Ml Ampul.Neb) 3 ml INHALE Q3H PRN PRN Reason: sob Albuterol/Ipratropium (Albuterol/Iprat 2.5/0.5mg 3 Ml Ampul.Neb) 3 ml INHALE RQ4H [facility] Last Admin: 01/18/23 15:49 Dose: 3 ml Documented By: KAM Alprazolam (Alprazolam 0.5 Mg Tablet) 2 mg PO BEDTIME [facility] Last Admin: 01/17/23 22:00 Dose: 2 mg Documented By: ARLIN Benzonatate (Benzonatate 100 Mg Capsule) 100 mg PO TID [facility] Last Admin: 01/18/23 14:20 Dose: 100 mg Documented By: SHREYA Diltiazem HCl (Diltiazem Hcl Cd 240 Mg Cap.Er.Deg) 240 mg PO DAILY [facility]; Protocol Last Admin: 01/18/23 08:32 Dose: 240 mg Documented By: SHREYA Guaifenesin/Codeine Phosphate (Guaifen/Codeine Sf 200/20/10ml 10 Ml Liquid) 10 ml PO Q4H PRN PRN Reason: cough Last Admin: 01/18/23 14:20 Dose: 10 ml Documented By: SHREYA Ceftriaxone Sodium 1 gm/ (Sodium Chloride) 50 mls @ 100 mls/hr IV DAILY [facility] Last Infusion: 01/18/23 10:10 Dose: Infused Documented By: SHREYA Lidocaine (Lidocaine 4 % Patch Adh..Patch) 1 patch TRANSDERMA DAILY [facility] Last Admin: 01/18/23 08:42 Dose: 1 patch Documented By: SHREYA Lidocaine (Lidocaine 4 % Patch Adh..Patch) 1 patch TRANSDERMA DAILY [facility]; Protocol Last Admin: 01/18/23 09:37 Dose: 1 patch Documented By: SHREYA Losartan Potassium (Losartan Potassium 50 Mg Tablet) 100 mg PO DAILY [facility]; Protocol Last Admin: 01/18/23 08:33 Dose: 100 mg Documented By: SHREYA Metoprolol Tartrate (Metoprolol Tartrate 50 Mg Tablet) 50 mg PO BID [facility]; Protocol Last Admin: 01/18/23 08:32 Dose: 50 mg Documented By: SHREYA Nystatin (Nystatin Powder 15 Gm Bottle) 1 appl TOPICAL BID [facility]; Protocol Last Admin: 01/18/23 08:42 Dose: Not Given Documented By: SHREYA Non-Admin Reason: Patient Refused Omeprazole (Omeprazole 20 Mg Jeovany.) 20 mg PO BID@0630,1630 [facility] Last Admin: 01/18/23 05:40 Dose: 20 mg Documented By: ARLIN Oxycodone HCl (Oxycodone Hcl Immed Release 5 Mg Tablet) 10 mg PO Q6H PRN PRN Reason: mod pain Last Admin: 01/18/23 14:20 Dose: 10 mg Documented By: SHREYA Potassium Chloride (Potassium Chloride Er 20 Meq Tab.Er.Prt) 20 meq PO BID [facility] Last Admin: 01/18/23 08:32 Dose: 20 meq Documented By: SHREYA Prednisone (Prednisone 10 Mg Tablet) 50 mg PO DAILY [facility] Last Admin: 01/18/23 08:31 Dose: 50 mg Documented By: SHREYA Rivaroxaban (Rivaroxaban 20 Mg Tablet) 20 mg PO DAILY@1700 [facility] Last Admin: 01/17/23 18:09 Dose: 20 mg Documented By: [place] Sodium Chloride (0.9 % Sodium Chloride Flush 3 Ml Syringe) 3 ml IVFLUSH QSHIFT [facility] Last Admin: 01/18/23 09:35 Dose: 3 ml Documented By: SHREYA Torsemide (Torsemide 20 Mg Tablet) 80 mg PO DAILY [facility]; Protocol Last Admin: 01/18/23 09:36 Dose: 80 mg Documented By: SHREYA Torsemide (Torsemide 20 Mg Tablet) 60 mg PO BEDTIME [facility]; Protocol Vitamin D (Cholecalciferol (Vitamin D3) 25 Mcg Tablet) 50 mcg PO DAILY [facility] Last Admin: 01/18/23 08:33 Dose: 50 mcg Documented By: SHREYA Labs 01/17/23 12:23 01/17/23 12:23 Labs: Laboratory Results - last 24 hr 01/17/23 01/17/23 01/17/23 17:15 18:25 22:00 POC Glucose 220 H Lactic Acid F/U @ 2Hr Cancelled Respiratory Panel Esposito See Note Adenovirus (Rapid PCR) Not Detected B.pert (TEM-PCR) Not Detected B.parapertussis DNA PCR Not Detected C. pneumoniae DNA (PCR) Not Detected Coronavirus OC43 (PCR) Not Detected Coronavirus HKU1 (PCR) Not Detected Coronavirus 229E (PCR) Not Detected Coronavirus NL63 (PCR) Not Detected Human Metapneumovir PCR Not Detected Influenza A (RT-PCR) Not Detected Influenza B (RT-PCR) Not Detected M. pneumoniae (PCR) Not Detected Parainfluenza 1 (PCR) Not Detected Parainfluenza 2 (PCR) Not Detected Parainfluenza 3 (PCR) Not Detected Parainfluenza 4 (PCR) Not Detected RSV (PCR) Detected A Entero/Rhino (PCR) Not Detected SARS-CoV-2 RNA (RT-PCR) Not Detected Assessment and Plan (1) RSV bronchitis: Status: Acute Plan 82 yo female with hx of COPD, afib on xarelto, UTI, leg edema who has not been well since last Saturday. She has had URI symptoms that have progressed. She denies travel or sick contacts. She went to walk in clinic on 01/16 and was started on prednisone and cephalexin as well as cough medications that are not helping. When at walk in clinic she was urged to go to the ER but she refused. no fevers In ED patient received antibiotics, still nebs, steroids was not improving says still having shortness of breath with minimal exertion and having cough; so admission was requested for COPD exacerbation. COPD exacerbation with RSV URI: Chest x-ray negative, blood cultures sent, will add are yes panel. Patient still having productive cough, shortness of breath with minimal exertion Nebs, steroids tried failed out patiently Elevated lactic acid due to nebs Will continue nebs, steroids, antibiotics If patient condition worsen will get ABG, consider pulmonary evaluation. afib on xarelto ekg afib Rate controlled continue diltiazem htn: Continue medications-metoprolol, diltiazem, losartan. morbid obesity: Encouraged to lose weight, cut on calories. Patient will benefit 48-72 hour hospital treatment for underlying COPD exacerbation in setting of rsv uri because did not respond to outpatient treatment also patient is still symptomatic after trial of ED treatment with nebs, steroids Quality Stroke Does the patient have a stroke diagnosis?: No VTE Prior VTE?: No VTE Risk Level:: Medical - moderate - high VTE Device Contraindication: N/A - Device Ordered VTE Drug Contraindication: N/A - Med Ordered
[2023-01-18] MEDS: Rivaroxaban 20 MG TABLET PO (16:30)
[2023-01-18] MEDS: Torsemide 20 MG TABLET 60 MG PO (16:55)
--- NOTE | 2023-01-18 16:57 | P.CDIM_ITS ---
PROVIDER RESPONSE TEXT: To clarify, the appropriate diagnosis supported by the clinical indicators: Obesity Due to excess calories QUERY TEXT: PHYSICIAN'S DOCUMENTATION REQUEST Date of Query: 01/18/2023 11:34 AM EST Patient Name: Myrtle Key Admit Date: 01/17/2023 Dear Griselda Steward, A review of the medical record indicates additional documentation may be needed. Please review below and update the documentation accordingly. Clinical Indicators: Nursing notes Height and Weight: BMI 43.1 117.4kg Extreme obesity Class III If possible, please provide an associated diagnosis related to the abnormal BMI, such as: Overweight Obesity Due to excess calories Obesity Due to other cause Specify the other cause Severe or Morbid Obesity With alveolar hypoventilation Severe or Morbid Obesity Without alveolar hypoventilation Other (explain) Clinically unable to determine (explain) Thank you, Ginger Dubose, CCS, CDIS Use of terms such as suspected, likely, concern for, or probable (associated with a specific diagnosi s that is being evaluated, monitored, or treated as if it exists) are acceptable and can be coded in the inpatient se tting, when documented at the time of discharge. Please use your independent medical judgment in providing your response. THIS QUERY IS PART OF THE PERMANENT MEDICAL RECORD
[2023-01-18] MEDS: ALPRAZolam 0.5 MG TABLET 2 MG PO (21:50)
[2023-01-19] MEDS: oxyCODONE HCl Immed Release 5 MG TABLET 10 MG PO ×2 (06:25→11:58)
[2023-01-19] MEDS: guaiFEN/Codeine SF 200/20/10ML 10 ML LIQUID PO ×4 (06:27→23:36)
[2023-01-19] MEDS: Omeprazole 20 MG CAPSULE.DR PO ×2 (06:28→17:01)
[2023-01-19 07:07] VITALS: BP 138/80; PULSE 88; RESP 20; TEMP 36.7; O2SAT 92
[2023-01-19] MEDS: Torsemide 20 MG TABLET 80 MG PO (08:49)
[2023-01-19] MEDS: dilTIAZem HCL CD 240 MG CAP.ER.DEG PO (08:49)
[2023-01-19] MEDS: cefTRIAXone sodium 1 GM in 0.9 % Sodium Chloride 50 ML IV (08:49)
[2023-01-19] MEDS: Losartan Potassium 50 MG TABLET 100 MG PO (08:49)
[2023-01-19] MEDS: Potassium Chloride ER 20 MEQ TAB.ER.PRT PO ×2 (08:50→20:16)
[2023-01-19] MEDS: Metoprolol Tartrate 50 MG TABLET PO ×2 (08:50→20:16)
[2023-01-19] MEDS: Cholecalciferol (Vitamin D3) 25 MCG TABLET 50 MCG PO (08:50)
[2023-01-19] MEDS: predniSONE 10 MG TABLET 50 MG PO (08:50)
[2023-01-19] MEDS: Benzonatate 100 MG CAPSULE PO ×3 (08:50→20:17)
[2023-01-19] MEDS: Lidocaine 4 % Patch ADH..PATCH 1 PATCH TRANSDERMA ×2 (08:50→08:51)
[2023-01-19] MEDS: Nystatin Powder 15 GM BOTTLE 1 APPL TOPICAL (08:51)
[2023-01-19] MEDS: 0.9 % Sodium Chloride Flush 3 ML SYRINGE IVFLUSH ×3 (08:52→20:17)
--- NOTE | 2023-01-19 08:57 | MHC.CM.PN ---
PT REPORTS SHE LIVES WITH HER AND IS INDEPENDENT WITH CARE SHE SAYS SHE HAS A WALKER SHE USES ON LONG DISTANCES BUT USUALLY DOES NOT REQUIRE DME PT REPORTS SHE HAS NO FORMAL SERVICES BUT DOES HAVE A FRIEND THAT IS A RN WHO CHECKS IN ON THEM SHE SAYS THIS FRIEND HAS ALSO HELPED THEM GET CONNECTED WITH AN AGENCY IN CASE THEY DO NEED HOME CARE IN THE FUTURE SHE SAYS AT THIS TIME SHE AND HER HELP EACH OTHER OUT AND THEY ARE DOING FINE SHE REPORTS SHE HAS A HCP AND MOLST AT HOME, SHE SAYS HER WILL BRING COPIES ON SATURDAY PCP: NILE MULLIGAN AT [facility] DELIVERED DCP: HOME NO SERVICES TO TRANSPORT
[2023-01-19 11:02] VITALS: BP 119/63; PULSE 75; RESP 20; TEMP 36.2; O2SAT 94
--- NOTE | 2023-01-19 11:55 | HO.PM.IMPN ---
Subjective Subjective Date of Service: 01/19/23 Interval History: COPD exacerbation, RSV URI Review of Systems sob with minimum excersion,talk with broken sentences . denies any chets pain or sob. Physical Exam Vital Signs: Vital Signs: Last Vital Signs Temp 97.1 F 01/19/23 11:02 Pulse 75 01/19/23 11:02 Resp 20 01/19/23 11:02 BP 119/63 01/19/23 11:02 Pulse Ox 94 01/19/23 11:02 O2 Del Method Nasal Cannula 01/19/23 11:02 O2 Flow Rate 1 01/19/23 11:02 BMI result Body Mass Index 43.1 Appearance: Alert.? Oriented X3.?sob.. cvs: rrr, [id number] , no murmur res: diminshed breath sounds ,b/l wheezin abd: no rebound or guarding ,nt, bs present. ext pulses present , no cyanosis neuro: axo3 , nonfocal. Objective Data Active Medications Albuterol/Ipratropium (Albuterol/Iprat 2.5/0.5mg 3 Ml Ampul.Neb) 3 ml INHALE Q3H PRN PRN Reason: sob Albuterol/Ipratropium (Albuterol/Iprat 2.5/0.5mg 3 Ml Ampul.Neb) 3 ml INHALE RQ4H [facility] Last Admin: 01/19/23 11:55 Dose: Not Given Documented By: DILIA Non-Admin Reason: Patient Refused Alprazolam (Alprazolam 0.5 Mg Tablet) 2 mg PO BEDTIME [facility] Last Admin: 01/18/23 21:50 Dose: 2 mg Documented By: JASON Benzonatate (Benzonatate 100 Mg Capsule) 100 mg PO TID [facility] Last Admin: 01/19/23 08:50 Dose: 100 mg Documented By: ESTEFANIA Diltiazem HCl (Diltiazem Hcl Cd 240 Mg Cap.Er.Deg) 240 mg PO DAILY [facility]; Protocol Last Admin: 01/19/23 08:49 Dose: 240 mg Documented By: ESTEFANIA Guaifenesin/Codeine Phosphate (Guaifen/Codeine Sf 200/20/10ml 10 Ml Liquid) 10 ml PO Q4H PRN PRN Reason: cough Last Admin: 01/19/23 06:27 Dose: 10 ml Documented By: JASON Ceftriaxone Sodium 1 gm/ (Sodium Chloride) 50 mls @ 100 mls/hr IV DAILY [facility] Last Infusion: 01/19/23 09:20 Dose: Infused Documented By: ESTEFANIA Lidocaine (Lidocaine 4 % Patch Adh..Patch) 1 patch TRANSDERMA DAILY [facility] Last Admin: 01/19/23 08:50 Dose: 1 patch Documented By: ESTEFANIA Lidocaine (Lidocaine 4 % Patch Adh..Patch) 1 patch TRANSDERMA DAILY [facility]; Protocol Last Admin: 01/19/23 08:51 Dose: 1 patch Documented By: ESTEFANIA Losartan Potassium (Losartan Potassium 50 Mg Tablet) 100 mg PO DAILY [facility]; Protocol Last Admin: 01/19/23 08:49 Dose: 100 mg Documented By: ESTEFANIA Metoprolol Tartrate (Metoprolol Tartrate 50 Mg Tablet) 50 mg PO BID [facility]; Protocol Last Admin: 01/19/23 08:50 Dose: 50 mg Documented By: ESTEFANIA Nystatin (Nystatin Powder 15 Gm Bottle) 1 appl TOPICAL BID [facility]; Protocol Last Admin: 01/19/23 08:51 Dose: 1 appl Documented By: ESTEFANIA Omeprazole (Omeprazole 20 Mg Capsule.Dr) 20 mg PO BID@0630,1630 [facility] Last Admin: 01/19/23 06:28 Dose: 20 mg Documented By: JASON Oxycodone HCl (Oxycodone Hcl Immed Release 5 Mg Tablet) 10 mg PO Q6H PRN PRN Reason: mod pain Last Admin: 01/19/23 06:25 Dose: 10 mg Documented By: JASON Potassium Chloride (Potassium Chloride Er 20 Meq Tab.Er.Prt) 20 meq PO BID [facility] Last Admin: 01/19/23 08:50 Dose: 20 meq Documented By: ESTEFANIA Prednisone (Prednisone 10 Mg Tablet) 50 mg PO DAILY [facility] Last Admin: 01/19/23 08:50 Dose: 50 mg Documented By: ESTEFANIA Rivaroxaban (Rivaroxaban 20 Mg Tablet) 20 mg PO DAILY@1700 [facility] Last Admin: 01/18/23 16:30 Dose: 20 mg Documented By: SHREYA Sodium Chloride (0.9 % Sodium Chloride Flush 3 Ml Syringe) 3 ml IVFLUSH QSHIFT [facility] Last Admin: 01/19/23 08:52 Dose: 3 ml Documented By: ESTEFANIA Torsemide (Torsemide 20 Mg Tablet) 80 mg PO DAILY [facility]; Protocol Last Admin: 01/19/23 08:49 Dose: 80 mg Documented By: ESTEFANIA Torsemide (Torsemide 20 Mg Tablet) 60 mg PO DAILY@1600 [facility]; Protocol Last Admin: 01/18/23 16:55 Dose: 60 mg Documented By: SHREYA Vitamin D (Cholecalciferol (Vitamin D3) 25 Mcg Tablet) 50 mcg PO DAILY [facility] Last Admin: 01/19/23 08:50 Dose: 50 mcg Documented By: ESTEFANIA Labs 01/17/23 12:23 01/17/23 12:23 Labs: Laboratory Results - last 24 hr 01/17/23 22:00 Respiratory Panel Esposito See Note Adenovirus (Rapid PCR) Not Detected B.pert (TEM-PCR) Not Detected B.parapertussis DNA PCR Not Detected C. pneumoniae DNA (PCR) Not Detected Coronavirus OC43 (PCR) Not Detected Coronavirus HKU1 (PCR) Not Detected Coronavirus 229E (PCR) Not Detected Coronavirus NL63 (PCR) Not Detected Human Metapneumovir PCR Not Detected Influenza A (RT-PCR) Not Detected Influenza B (RT-PCR) Not Detected M. pneumoniae (PCR) Not Detected Parainfluenza 1 (PCR) Not Detected Parainfluenza 2 (PCR) Not Detected Parainfluenza 3 (PCR) Not Detected Parainfluenza 4 (PCR) Not Detected RSV (PCR) Detected A Entero/Rhino (PCR) Not Detected SARS-CoV-2 RNA (RT-PCR) Not Detected Microbiology Microbiology Results: Microbiology 01/17/23 13:54 Blood Culture - Preliminary Blood - Venous No growth after 24 hours. 01/17/23 13:54 Blood Culture - Preliminary Blood - Venous No growth after 24 hours. Assessment and Plan (1) RSV bronchitis: Status: Acute (2) Acidosis, lactic: Status: Acute Plan 82 yo female with hx of COPD, afib on xarelto, UTI, leg edema who has not been well since last Saturday. She has had URI symptoms that have progressed. She denies travel or sick contacts. She went to walk in clinic on 01/16 and was started on prednisone and cephalexin as well as cough medications that are not helping. When at walk in clinic she was urged to go to the ER but she refused. no fevers In ED patient received antibiotics, still nebs, steroids was not improving says still having shortness of breath with minimal exertion and having cough; so admission was requested for COPD exacerbation. COPD exacerbation with RSV URI: Chest x-ray negative, blood cultures sent, will add are yes panel. Patient still having productive cough, shortness of breath with minimal exertion Nebs, steroids tried failed out patiently acute lactic acidosis due to nebs Will continue nebs, steroids, antibiotics If patient condition worsen will get ABG, consider pulmonary evaluation. afib on xarelto ekg afib Rate controlled continue diltiazem htn: Continue medications-metoprolol, diltiazem, losartan. morbid obesity: Encouraged to lose weight, cut on calories. ongoing hospitilisation need:benefit from 48-72 hour hospital treatment for underlying COPD exacerbation in setting of rsv uri because did not respond to outpatient treatment also patient is still symptomatic after trial of ED treatment with nebs, steroids Quality Stroke Does the patient have a stroke diagnosis?: No VTE Prior VTE?: No VTE Risk Level:: Medical - moderate - high VTE Device Contraindication: N/A - Device Ordered VTE Drug Contraindication: N/A - Med Ordered
[2023-01-19] MEDS: Torsemide 20 MG TABLET 60 MG PO (15:00)
[2023-01-19] MEDS: Loratadine 10 MG TABLET PO (15:01)
[2023-01-19 15:17] VITALS: BP 112/67; PULSE 69; RESP 20; TEMP 36; O2SAT 96
[2023-01-19 16:17] VITALS: PULSE 69; RESP 16; O2SAT 96
[2023-01-19] MEDS: Albuterol/Iprat 2.5/0.5MG 3 ML AMPUL.NEB INHALE (16:17)
[2023-01-19] MEDS: Rivaroxaban 20 MG TABLET PO (17:01)
[2023-01-19 18:55] VITALS: BP 132/63; PULSE 90; RESP 20; TEMP 36; O2SAT 95
[2023-01-19] MEDS: ALPRAZolam 0.5 MG TABLET 2 MG PO (20:16)
[2023-01-19 23:39] VITALS: BP 158/79; PULSE 80; RESP 20; TEMP 36.6; O2SAT 92
[2023-01-20 03:05] VITALS: BP 150/83; PULSE 73; RESP 20; TEMP 36.1; O2SAT 91
[2023-01-20] MEDS: Omeprazole 20 MG CAPSULE.DR PO ×2 (04:01→16:20)
[2023-01-20] MEDS: guaiFEN/Codeine SF 200/20/10ML 10 ML LIQUID PO ×5 (04:01→22:09)
[2023-01-20 04:30] VITALS: BP 168/82
[2023-01-20 07:09] VITALS: BP 150/78; PULSE 76; RESP 20; TEMP 36.6; O2SAT 93
[2023-01-20] MEDS: Lidocaine 4 % Patch ADH..PATCH 1 PATCH TRANSDERMA ×2 (09:26)
[2023-01-20] MEDS: predniSONE 10 MG TABLET 50 MG PO (09:27)
[2023-01-20] MEDS: Cholecalciferol (Vitamin D3) 25 MCG TABLET 50 MCG PO (09:27)
[2023-01-20] MEDS: Losartan Potassium 50 MG TABLET 100 MG PO (09:27)
[2023-01-20] MEDS: dilTIAZem HCL CD 240 MG CAP.ER.DEG PO (09:27)
[2023-01-20] MEDS: Metoprolol Tartrate 50 MG TABLET PO ×2 (09:27→22:09)
[2023-01-20] MEDS: Benzonatate 100 MG CAPSULE PO ×3 (09:27→22:09)
[2023-01-20] MEDS: Potassium Chloride ER 20 MEQ TAB.ER.PRT PO ×2 (09:27→22:09)
[2023-01-20] MEDS: Torsemide 20 MG TABLET 80 MG PO (09:28)
[2023-01-20] MEDS: cefTRIAXone sodium 1 GM in 0.9 % Sodium Chloride 50 ML IV (09:28)
[2023-01-20] MEDS: Loratadine 10 MG TABLET PO (09:28)
[2023-01-20] MEDS: Nystatin Powder 15 GM BOTTLE 1 APPL TOPICAL ×2 (09:29→22:14)
[2023-01-20] MEDS: 0.9 % Sodium Chloride Flush 3 ML SYRINGE IVFLUSH ×3 (09:29→22:13)
[2023-01-20 11:02] VITALS: BP 128/74; PULSE 78; RESP 20; TEMP 36.1; O2SAT 93
--- NOTE | 2023-01-20 11:53 | P.PNIM_ITS ---
Subjective Subjective Date of Service: 01/20/23 Interval History: COPD exacerbation, RSV URI Review of Systems sob with minimum excersion,talk with broken sentences . denies any chets pain or sob. Physical Exam 2 Vital Signs: Vital Signs: Last Vital Signs Temp 96.9 F 01/20/23 11:02 Pulse 78 01/20/23 11:02 Resp 20 01/20/23 11:02 BP 128/74 01/20/23 11:02 Pulse Ox 93 01/20/23 11:02 O2 Del Method Nasal Cannula 01/20/23 11:02 O2 Flow Rate 1 01/20/23 11:02 BMI result Body Mass Index 43.1 Appearance: Alert.? Oriented X3.?sob.. cvs: rrr, [id number] , no murmur res: diminshed breath sounds ,b/l wheezin abd: no rebound or guarding ,nt, bs present. ext pulses present , no cyanosis neuro: axo3 , nonfocal. Objective Data Active Medications Albuterol/Ipratropium (Albuterol/Iprat 2.5/0.5mg 3 Ml Ampul.Neb) 3 ml INHALE Q3H PRN PRN Reason: sob Albuterol/Ipratropium (Albuterol/Iprat 2.5/0.5mg 3 Ml Ampul.Neb) 3 ml INHALE RQ4H [facility] Last Admin: 01/20/23 11:47 Dose: Not Given Documented By: JUSTICE Non-Admin Reason: Patient Asleep Alprazolam (Alprazolam 0.5 Mg Tablet) 2 mg PO BEDTIME [facility] Last Admin: 01/19/23 20:16 Dose: 2 mg Documented By: JASON Benzonatate (Benzonatate 100 Mg Capsule) 100 mg PO TID [facility] Last Admin: 01/20/23 09:27 Dose: 100 mg Documented By: ESTEFANIA Diltiazem HCl (Diltiazem Hcl Cd 240 Mg Cap.Er.Deg) 240 mg PO DAILY [facility]; Protocol Last Admin: 01/20/23 09:27 Dose: 240 mg Documented By: ESTEFANIA Guaifenesin/Codeine Phosphate (Guaifen/Codeine Sf 200/20/10ml 10 Ml Liquid) 10 ml PO Q4H [facility] Last Admin: 01/20/23 11:32 Dose: 10 ml Documented By: ESTEFANIA Ceftriaxone Sodium 1 gm/ (Sodium Chloride) 50 mls @ 100 mls/hr IV DAILY [facility] Last Infusion: 01/20/23 09:58 Dose: Infused Documented By: ESTEFANIA Lidocaine (Lidocaine 4 % Patch Adh..Patch) 1 patch TRANSDERMA DAILY [facility] Last Admin: 01/20/23 09:26 Dose: 1 patch Documented By: ESTEFANIA Lidocaine (Lidocaine 4 % Patch Adh..Patch) 1 patch TRANSDERMA DAILY [facility]; Protocol Last Admin: 01/20/23 09:26 Dose: 1 patch Documented By: ESETFANIA Loratadine (Loratadine 10 Mg Tablet) 10 mg PO DAILY [facility] Last Admin: 01/20/23 09:28 Dose: 10 mg Documented By: ESTEFANIA Losartan Potassium (Losartan Potassium 50 Mg Tablet) 100 mg PO DAILY [facility]; Protocol Last Admin: 01/20/23 09:27 Dose: 100 mg Documented By: ESTEFANIA Metoprolol Tartrate (Metoprolol Tartrate 50 Mg Tablet) 50 mg PO BID [facility]; Protocol Last Admin: 01/20/23 09:27 Dose: 50 mg Documented By: ESTEFANIA Nystatin (Nystatin Powder 15 Gm Bottle) 1 appl TOPICAL BID [facility]; Protocol Last Admin: 01/20/23 09:29 Dose: 1 appl Documented By: ESTEFANIA Omeprazole (Omeprazole 20 Mg Capsule.Dr) 20 mg PO BID@0630,1630 [facility] Last Admin: 01/20/23 04:01 Dose: 20 mg Documented By: JASON Potassium Chloride (Potassium Chloride Er 20 Meq Tab.Er.Prt) 20 meq PO BID [facility] Last Admin: 01/20/23 09:27 Dose: 20 meq Documented By: ESTEFANIA Prednisone (Prednisone 10 Mg Tablet) 50 mg PO DAILY [facility] Last Admin: 01/20/23 09:27 Dose: 50 mg Documented By: ESTEFANIA Rivaroxaban (Rivaroxaban 20 Mg Tablet) 20 mg PO DAILY@1700 [facility] Last Admin: 01/19/23 17:01 Dose: 20 mg Documented By: ESTEFANIA Sodium Chloride (0.9 % Sodium Chloride Flush 3 Ml Syringe) 3 ml IVFLUSH QSHIFT [facility] Last Admin: 01/20/23 09:29 Dose: 3 ml Documented By: ESTEFANIA Torsemide (Torsemide 20 Mg Tablet) 80 mg PO DAILY [facility]; Protocol Last Admin: 01/20/23 09:28 Dose: 80 mg Documented By: ESTEFANIA Torsemide (Torsemide 20 Mg Tablet) 60 mg PO DAILY@1600 [facility]; Protocol Last Admin: 01/19/23 15:00 Dose: 60 mg Documented By: ESTEFANIA Vitamin D (Cholecalciferol (Vitamin D3) 25 Mcg Tablet) 50 mcg PO DAILY [facility] Last Admin: 01/20/23 09:27 Dose: 50 mcg Documented By: ESTEFANIA Labs 01/17/23 12:23 01/17/23 12:23 Microbiology Microbiology Results: Microbiology 01/17/23 13:54 Blood Culture - Preliminary Blood - Venous No growth after 48 hours. 01/17/23 13:54 Blood Culture - Preliminary Blood - Venous No growth after 48 hours. Assessment and Plan (1) RSV bronchitis: Status: Acute (2) Acidosis, lactic: Status: Acute Plan 82 yo female with hx of COPD, afib on xarelto, UTI, leg edema who has not been well since last Saturday. She has had URI symptoms that have progressed. She denies travel or sick contacts. She went to walk in clinic on 01/16 and was started on prednisone and cephalexin as well as cough medications that are not helping. When at walk in clinic she was urged to go to the ER but she refused. no fevers In ED patient received antibiotics, still nebs, steroids was not improving says still having shortness of breath with minimal exertion and having cough; so admission was requested for COPD exacerbation. COPD exacerbation with RSV URI: Chest x-ray negative, blood cultures sent, will add are yes panel. Patient still having productive cough, shortness of breath with minimal exertion Nebs, steroids tried failed out patiently acute lactic acidosis due to nebs Will continue nebs, steroids, antibiotics If patient condition worsen will get ABG, consider pulmonary evaluation. afib on xarelto ekg afib Rate controlled continue diltiazem htn: Continue medications-metoprolol, diltiazem, losartan. Hyperglycemia : possible sec to steriods use, Hba1c levels moniter fs ,may need sliding scale coverage morbid obesity: Encouraged to lose weight, cut on calories. ongoing hospitilisation need:benefit from 48-72 hour hospital treatment for underlying COPD exacerbation in setting of rsv uri because did not respond to outpatient treatment also patient is still symptomatic after trial of ED treatment with nebs, steroids Quality Stroke Does the patient have a stroke diagnosis?: No VTE Prior VTE?: No VTE Risk Level:: Medical - moderate - high VTE Device Contraindication: N/A - Device Ordered VTE Drug Contraindication: N/A - Med Ordered
--- NOTE | 2023-01-20 13:01 | MHC.CM.PN ---
HCP has been uploaded into [facility] and a copy has been placed on the chart.
[2023-01-20] MEDS: oxyCODONE HCl Immed Release 5 MG TABLET 10 MG PO ×2 (14:46→22:10)
[2023-01-20] MEDS: Torsemide 20 MG TABLET 60 MG PO (14:46)
[2023-01-20 15:24] VITALS: BP 123/56; PULSE 74; RESP 16; TEMP 36.4; O2SAT 95
[2023-01-20 16:10] LABS: Anion Gap 18 (12-20); Blood Urea Nitrogen 30 mg/dL (9-16); Calcium 9.5 mg/dL (8.4-10.2); Carbon Dioxide 29 mmol/L (22-29); Chloride 94 mmol/L (96-108); Estimated Glomerular Filt Rate 45; Glucose Random 305 mg/dL (60-115); Potassium 3.6 mmol/L (3.3-5.1); Sodium 137 mmol/L (135-145)
[2023-01-20] MEDS: Rivaroxaban 20 MG TABLET PO (16:20)
[2023-01-20 16:25] LABS: Glucose, Whole Blood 269 mg/dL (60-115)
[2023-01-20 19:08] VITALS: BP 131/72; PULSE 81; RESP 16; TEMP 36.2; O2SAT 96
[2023-01-20 20:17] LABS: Glucose, Whole Blood 240 mg/dL (60-115)
[2023-01-20] MEDS: ALPRAZolam 0.5 MG TABLET 2 MG PO (22:09)
[2023-01-21] VITALS: BP 129/69; PULSE 67; RESP 20; TEMP 36.2; O2SAT 93
[2023-01-21] MEDS: guaiFEN/Codeine SF 200/20/10ML 10 ML LIQUID PO (00:42)
[2023-01-21 03:48] VITALS: BP 145/74; PULSE 68; RESP 18; TEMP 36.3; O2SAT 96
[2023-01-21 05:12] LABS: Estimated Average Glucose 171 mg/dL; Hemoglobin A1c % 7.6 % (<6.0)
[2023-01-21] MEDS: Omeprazole 20 MG CAPSULE.DR PO (06:38)
[2023-01-21 07:02] VITALS: BP 152/72; PULSE 65; RESP 18; TEMP 36.4; O2SAT 95
[2023-01-21] MEDS: Metoprolol Tartrate 50 MG TABLET PO (08:33)
[2023-01-21] MEDS: Loratadine 10 MG TABLET PO (08:33)
[2023-01-21] MEDS: predniSONE 10 MG TABLET 50 MG PO (08:33)
[2023-01-21] MEDS: glipiZIDE 5 MG TABLET 2.5 MG PO (08:34)
[2023-01-21] MEDS: dilTIAZem HCL CD 240 MG CAP.ER.DEG PO (08:34)
[2023-01-21] MEDS: Potassium Chloride ER 20 MEQ TAB.ER.PRT PO (08:34)
[2023-01-21] MEDS: Cholecalciferol (Vitamin D3) 25 MCG TABLET 50 MCG PO (08:34)
[2023-01-21] MEDS: Torsemide 20 MG TABLET 80 MG PO (08:34)
[2023-01-21] MEDS: Losartan Potassium 50 MG TABLET 100 MG PO (08:34)
[2023-01-21] MEDS: cefTRIAXone sodium 1 GM in 0.9 % Sodium Chloride 50 ML IV (08:35)
[2023-01-21] MEDS: oxyCODONE HCl Immed Release 5 MG TABLET 10 MG PO (08:35)
[2023-01-21] MEDS: Lidocaine 4 % Patch ADH..PATCH 1 PATCH TRANSDERMA ×2 (08:35)
[2023-01-21] MEDS: Benzonatate 100 MG CAPSULE PO (08:35)
[2023-01-21] MEDS: 0.9 % Sodium Chloride Flush 3 ML SYRINGE IVFLUSH (08:36)
[2023-01-21] MEDS: Nystatin Powder 15 GM BOTTLE 1 APPL TOPICAL (08:37)
[2023-01-21 10:29] VITALS: PULSE 101; PULSE 72; PULSE 80; PULSE 84; O2SAT 88; O2SAT 91; O2SAT 93; O2SAT 94
--- NOTE | 2023-01-21 10:30 | MHC.CM.PN ---
PT WILL DC HOME TODAY WITH NO NEW SERVICES TO TRANSPORT
--- NOTE | 2023-01-21 10:40 | PM.DS ---
DS: Providers Provider Date of Service: 01/21/23 Date of admission: 01/17/23 16:55 Date of discharge: 01/21/23 Primary care physician: Unknown Physician Attending physician on discharge: Griselda Steward Discharging clinician: Griselda Steward DS: Diagnosis Discharge Diagnosis (1) RSV bronchitis: Status: Acute (2) Acidosis, lactic: Status: Acute DS: Summary Hospital Course Hospital Course: 82 yo female with hx of COPD, afib on xarelto, UTI, leg edema who has not been well since last Saturday. She has had URI symptoms that have progressed. She denies travel or sick contacts. She went to walk in clinic on 01/16 and was started on prednisone and cephalexin as well as cough medications that are not helping. When at walk in clinic she was urged to go to the ER but she refused. no fevers In ED patient received antibiotics, still nebs, steroids was not improving says still having shortness of breath with minimal exertion and having cough; so admission was requested for COPD exacerbation. Denies any new complaint of chest pain or abdominal pain or fever or chills or nausea or vomiting Denies any cough Denies any weakness or numbness. Lab imaging EKG reviewed: CBC: Seems fine. BMP: Seems fine except BUN is 32 creatinine is 1.07. ekg: afib Hospital course:Patient was admitted forCOPD exacerbation with RSV URI-started on nebs, steroids, antibiotics: With above supportive care patient condition seems to be improved significantly. Patient will be going home with p.o. steroids taper(considering has RSV URI on top of COPD). Home oxygen evaluation done patient qualified for home oxygen which will be arranged by [email or web address]. Acute lactic acidosis was thought to be related to nebs. Patient improved significantly, no further lactic acid trending presently needed. New onset diabetes: Hemoglobin A1c is 7.6., patient was strongly advise for diabetic diet, in addition we will add small dose glipizide while she is on steroids-and further use defer to the PCP because patient wants to discuss further use with the PCP. Morbid obesity: Patient was encouraged to lose weight, cutdown calories. plan: Please complete Ceftin 500 mg p.o. b.i.d. for 7 days and azithromycin 500 mg dailyx6 days. Please consider talking to your PCP for further management of diabetes new onset. Diabetic education given. Above management discussed with the patient in detail length she understand in agreement with the above plan, time spent 50 minutes. Time Attestation Discharge coordination time: Greater than 30 minutes Quality: Safe Use of Opioids Does Pt have an Active Cancer Diagnosis on the Problem List?: No Quality: Stroke Does the patient have a stroke diagnosis?: No Physical Exam Vital Signs: Vital Signs: Last Vital Signs Temp 97.5 F 01/21/23 07:02 Pulse 65 01/21/23 07:02 Resp 18 01/21/23 07:02 BP 152/72 H 01/21/23 07:02 Pulse Ox 95 01/21/23 07:02 O2 Del Method Nasal Cannula 01/21/23 07:02 O2 Flow Rate 2 01/21/23 03:48 BMI result Body Mass Index 43.1 Appearance: Alert.? Oriented X3.?sob.. cvs: rrr, [id number] , no murmur res: diminshed breath sounds ,no rales or wheezing abd: no rebound or guarding ,nt, bs present. ext pulses present , no cyanosis neuro: axo3 , nonfocal. DS: Data Data Completed and Pending Labs on day of discharge: Laboratory Results - last 24 hr 01/20/23 01/20/23 01/20/23 15:32 16:19 20:08 Sodium 137 Potassium 3.6 Chloride 94 L Carbon Dioxide 29 Anion Gap 18 BUN 30 H Creatinine 1.14 Estim Creat Clear Calc 47.0 Estimated GFR 45 POC Glucose 269 H 240 H Random Glucose 305 H Estimat Average Glucose 171 Hemoglobin A1c % 7.6 H Calcium 9.5 Preliminary micro results at discharge 01/17/23 13:54 Blood Culture - Preliminary Blood - Venous No growth after 48 hours. 01/17/23 13:54 Blood Culture - Preliminary Blood - Venous No growth after 48 hours. Imaging Chest x-ray: Radiologist's impression: ITS Impressions Chest X-Ray 01/17/23 14:25 IMPRESSION: Grossly clear AP portable chest x-ray. Discharge Plan Discharge Anticipated Discharge Date/Time: 01/21/23 10:11 Patient Disposition: Home, Self-Care Discharge Diagnosis: COPD exacerbation with RSV URI. Referrals: Physician,Unknown J [Primary Care Provider] - 1 Week Discharge Medications: New loratadine 10 mg Tablet 10 mg PO DAILY Qty: 7 0RF prednisone 10 mg tablet See Taper PO DAILY Qty: 30 0RF Taper: Prednisone 40 mg daily for 3 Days and 0 Hour 30 mg daily for 3 Days and 0 Hour 20 mg daily for 3 Days and 0 Hour 10 mg daily for 3 Days and 0 Hour cefuroxime axetil 500 mg tablet 500 mg PO BID Qty: 5 0RF glipizide 5 mg Tablet 2.5 mg PO BIDWM Qty: 20 0RF (DME) FreeStyle Lite Strips Strip Qty: 100 0RF Rx Instructions: Test four times a day or as directed. (DME) blood-glucose meter [FreeStyle Lite Meter] Kit Qty: 1 0RF Rx Instructions: As Directed alcohol swabs Pads, Medicated 1 pad TOPICAL QIDACHS Qty: 100 0RF Rx Instructions: Use four times a day or as directed. (DME) pen needle, diabetic 32 gauge x 1/4 needle Qty: 100 0RF Rx Instructions: Use four times a day or as directed. (DME) lancets [FreeStyle Lancets] 28 gauge misc Qty: 100 0RF Rx Instructions: Test four times a day or as directed. Continued nystatin 100,000 unit/gram Powder 1 appl TOPICAL BID estradiol 0.01 % (0.1 mg/gram) cream 1 appl vaginal MOTH clobetasol 0.05 % cream 1 appl topical BID torsemide 20 mg tablet 80 mg PO DAILY omeprazole 20 mg capsule,delayed release(DR/EC) 20 mg PO BID diclofenac sodium 1 % gel 1 ea topical DAILY losartan 50 mg tablet 100 mg PO DAILY torsemide 20 mg tablet 60 mg PO BEDTIME alprazolam 1 mg tablet 2 mg PO BEDTIME oxycodone 10 mg tablet 10 mg PO Q6H PRN (Reason: pain) potassium chloride 20 mEq tablet extended release 20 meq PO BID metoprolol tartrate 25 mg tablet 50 mg PO BID diltiazem HCl 240 mg capsule,extended release 24hr 240 mg PO DAILY lidocaine 5 % adhesive patch,medicated 0 patch topical DIRECTED Restasis 0.05 % dropperette 1 drp ophthalmic (eye) Q12H cholecalciferol (vitamin D3) 50 mcg (2,000 unit) capsule 50 mcg PO DAILY Xarelto 20 mg tablet 20 mg PO DAILY@1700 Rx Instructions: must administer with evening meal albuterol sulfate [Ventolin HFA] 90 mcg/actuation HFA aerosol inhaler 1 inh inhalation QID PRN (Reason: shortness of breath or wheezing) Qty: 8.5 1RF Discharge Orders: Discharge Order (Routine); Ordered 01/21/23 Ordered By: Griselda Steward Diet: Advance to usual diet Activity on Discharge: As tolerated Stand Alone Forms: Patient Portal Discharge page Care Plan Goals: Patient was admitted forCOPD exacerbation with RSV URI-started on nebs, steroids, antibiotics: With above supportive care patient condition seems to be improved significantly. Patient will be going home with p.o. steroids taper(considering has RSV URI on top of COPD). Home oxygen evaluation done patient qualified for home oxygen which will be arranged by [email or web address]. New onset diabetes: Hemoglobin A1c is 7.6., patient was strongly advise for diabetic diet, in addition we will add small dose glipizide while she is on steroids-and further use defer to the PCP because patient wants to discuss further use with the PCP. Health Concerns: As above. Plan of Treatment: Please complete Ceftin 500 mg p.o. b.i.d. for 7 days and azithromycin 500 mg dailyx6 days. Please consider talking to your PCP for further management of diabetes new onset. Diabetic education given. Assessment: As above. Patient Instructions: Respiratory Syncytial Virus (DC), Chronic Lung Disease and Infection Prevention (DC), Hypertension and Diabetes (DC)
[2023-01-21 11:13] VITALS: BP 146/65; PULSE 70; RESP 19; TEMP 36.4; O2SAT 93
--- NOTE | 2023-01-21 12:22 | P.CDIM_ITS ---
PROVIDER RESPONSE TEXT: To clarify, the appropriate diagnosis supported by the clinical indicators: Chronic or Permanent atrial fibrillation: when a decision has been made to accept the presence of AF and there is no further attempt to restore or maintain sinus rhythm QUERY TEXT: PHYSICIAN'S DOCUMENTATION REQUEST Date of Query: 01/21/2023 08:37 AM EST Patient Name: Myrtle Key Admit Date: 01/17/2023 Dear Griselda Steward, A review of the medical record indicates additional documentation may be needed. Please review below and update the documentation accordingly. Clinical Indicators: PN: Afib on xarelto ekg Afib Rate controlled, continue diltiazem If possible, please provide further specificity regarding atrial fibrillation, such as: Paroxysmal atrial fibrillation: terminates spontaneously or with intervention within 7 days of onset Persistent atrial fibrillation: episodes of continuous AF that last more than 7 days and do not self- terminate Long lasting persistent atrial fibrillation: episodes of continuous AF that last more than 12 months Chronic or Permanent atrial fibrillation: when a decision has been made to accept the presence of AF and there is no further attempt to restore or maintain sinus rhythm Other (explain) Clinically unable to determine (explain) Thank you, Ginger Dubose, CCS, CDIS Use of terms such as suspected, likely, concern for, or probable (associated with a specific diagnosi s that is being evaluated, monitored, or treated as if it exists) are acceptable and can be coded in the inpatient se tting, when documented at the time of discharge. Please use your independent medical judgment in providing your response. THIS QUERY IS PART OF THE PERMANENT MEDICAL RECORD
== END 2023-01-21 12:36 | disposition home or self-care (01) | DRG 202 ==
LOC: HO.ED 14:05 → HO.EDOVER 17:04 → HO.IMC 19:15
PROVIDERS: Physician Assistant Medical; Admitting Provider Internal Medicine; Emergency Provider Emergency Medicine; PCP Physician Assistant Medical; Visit Provider Internal Medicine
DX: J20.5 Acute bronchitis due to respiratory syncytial virus (principal); I48.21 Permanent atrial fibrillation; J44.1 Chronic obstructive pulmonary disease with (acute) exacerbation; Z68.41 Body mass index [BMI] 40.0-44.9, adult; J44.0 Chronic obstructive pulmonary disease with (acute) lower respiratory infection; E66.01 Morbid (severe) obesity due to excess calories; Z20.822 Contact with and (suspected) exposure to COVID-19; Z79.01 Long term (current) use of anticoagulants; Z79.84 Long term (current) use of oral hypoglycemic drugs; Z79.899 Other long term (current) drug therapy
CPT/HCPCS: 0241U; 36415; 71045; 71046; 80048; 80053; 82947; 83036; 83605; 83880; 84484; 85025; 87040; 87633; 93005; 94640; 99285; J0456; J0696; J1940; J2930

== ENCOUNTER → 2023-01-17 12:18 | Outpatient (BNV) | payer MEDICARE, SELFPAY | PROVIDERS: Admitting Provider Internal Medicine; Emergency Provider Emergency Medicine; Visit Provider Internal Medicine Cardiovascular Disease | DX: R94.31 Abnormal electrocardiogram [ECG] [EKG] (principal) | CPT/HCPCS: 93010 ==

== ENCOUNTER → 2023-01-17 16:55 | Outpatient (BNV) | payer MEDICARE, SELFPAY | PROVIDERS: Admitting Provider Internal Medicine; Emergency Provider Emergency Medicine; Visit Provider Internal Medicine | DX: J44.1 Chronic obstructive pulmonary disease with (acute) exacerbation (principal); J20.5 Acute bronchitis due to respiratory syncytial virus; E87.20 Acidosis, unspecified | CPT/HCPCS: 99222; 99232; 99239 ==